=== PATIENT | male | born 1945 ===

== ENCOUNTER 2023-04-10 14:16 | Outpatient (AMB) | payer MEDICARE, OTHER, SELFPAY ==
--- NOTE | 2023-04-10 14:19 | A.OFFVIS_ITS ---
Intake Vital Signs 04/10/23 14:38 Height 6 ft Weight 204 lb BMI 27.7 BP 102/62 Blood Pressure Location Lt brachial Position Sitting Respiration 15 Pulse 85 Pulse Source Pulse Oximeter Pulse Oximetry (%) 95 Oxygen Delivery Method Room Air Intake Visit Reasons: [employer]OR [employer]KER: Chronic Headaches/Cerebral Myeloid-confirmed Intake Note: Pt presents to office for new patient evaluation for symptoms he has s/p brain bleed back in 06/18/21. He states he and was resuscitated and received platelet transfusion during that hospital stay. He has had daily headaches since. He reports his headaches are frontal and radiate towards the left temporal region, a 3/10 on a pain scale, achy and constant. Nothing provides any relief. He has noticed he has also developed unsteady gait, double vision as well as some significant memory loss. He reports 2 hospital admissions since his bleed due to aphasia and lack of coordination. He states he had multiple CT scans which were WNL. Allergies contrast dye Allergy (Mild, Uncoded 04/10/23 14:30) Agitated Medication List - Last Reconciled 04/10/23 by Clair Howe MD atorvastatin 10 mg PO DAILY empagliflozin (Jardiance) 10 mg PO DAILY glipizide 5 mg PO DAILY lisinopril 2.5 mg PO DAILY metformin 500 mg PO DAILY metoprolol succinate ER 25 mg PO DAILY HPI HPI Comments History of Present Illness Details 78y/o male comes for evaluation of heada ches, Intracranial hemorrhage, cerebral amyloidosis ? comes for further management. In May 2021 he was admitted in the hospital in [place] . He woke up with nasal bleeding , in the hospital he was found to have thrombocytopenia, he says he was in coma for 2-3 weeks. He does not have recollection of any events. He was in rehab after that for 1 month with near full recovery .He sees Dr. Holguin for Thrombocytopenia. since his admission he has gait issues - feels vertginous. Since his admission he has been having chronic headaches.The headaches are in left parietal pressure, constant pain, 2-3/10 in intensity. He denies nausea, photophobia, phonophobia. He has on and off double vision and has visual aura ( bright spots in his left field)intermittently .He denies neck pain. He takes 2 tylenols to help him sleep. he denies memory issues. No snoring. REPLACED BY [facility] Medical History Hypothyroidism Hyperlipidemia Back pain HTN (hypertension) Thrombocytopenia Prostate cancer ICH (intracerebral hemorrhage) GERD (gastroesophageal reflux disease) Weakness Diplopia Diabetes CAD (coronary artery disease) Cerebral amyloid angiopathy Surgical History S/P aorta repair History of left hip replacement Heart valve replaced History of prostatectomy Previous back surgery Family History Mother No problems noted. Father No problems noted. Social History Household Members: Significant Other Housing: Condominium Review of Systems Const Reports headache(s) Eyes Reports blurry vision and Reports diplopia ENT Reports headache(s) Reports urinary frequency Musc Reports back pain Neuro Reports headache(s) Physical Exam Vital Signs: Last Vital Signs Pulse 85 04/10/23 14:38 Resp 15 04/10/23 14:38 BP 102/62 04/10/23 14:38 Pulse Ox 95 04/10/23 14:38 Oxygen Delivery Method Room Air 04/10/23 14:38 BMI result Body Mass Index 27.7 Const Orientation/consciousness: patient oriented x3 Neuro Other: gait- wide based , mild off balance Mild slowing left UE Mallamaptti grade 4 restricted range of motion - tenderness and tightness in left levator and splenius - spasmodic torticollis General: patient oriented x3, tone normal, moves all extremities and no focal motor deficits Cranial nerves: Yes Facial sensation intact/muscles of mastication intact, Yes Bilaterally intact EOM present, Yes Nystagmus not present, Yes Normal facial strength present and Yes Midline tongue present Cognition (Neuro): normal cognition Motor exam (neuro): 5/5 motor strength present throughout and Normal motor muscle tone present throughout Deep tendon reflexes (DTR's): Right triceps reflex intensity grade: 0, Left triceps reflex intensity grade: 0, Rt Biceps (C5, C6): 0, Left biceps reflex intensity grade: 0, Right brachioradialis reflex intensity grade: 0, Left brachioradialis reflex intensity grade: 0, Right patellar reflex intensity grade: 0 and Left patellar reflex intensity grade: 0 Assessment & Plan Assessment & Plan (1) Spasmodic torticollis: Comment: left laterocollis Code(s): G24.3 - Spasmodic torticollis (2) Cervicogenic headache: Code(s): G44.86 - Cervicogenic headache Plan: arley related to dystonia Plan Discussed about diagnosis and suggested BOTOX. He will read info and will call us back PT- for gait and neck Orders: Orders PT Evaluation and Treatment Today G24.3 - Spasmodic torticollis, G44.86 - Cervicogenic headache, R26.9 - Unspecified abnormalities of gait and mobility Coding Level of Care Code New Pt Level 4 (16829) Diagnoses Spasmodic torticollis G24.3 Cervicogenic headache G44.86
[2023-04-10 14:38] VITALS: BP 102/62; PULSE 85; RESP 15; O2SAT 95; BMI 27.7
== END 2023-04-10 15:15 | disposition home or self-care (01) ==
PROVIDERS: PCP Student in an Organized Health Care Education/Training Program; Visit Provider Psychiatry & Neurology Neurology
DX: G24.3 Spasmodic torticollis (principal); G44.86 Cervicogenic headache
CPT/HCPCS: 99204

== ENCOUNTER → 2023-04-10 14:16 | Outpatient (BNVA) | payer OTHER, SELFPAY | PROVIDERS: PCP Student in an Organized Health Care Education/Training Program; Visit Provider Psychiatry & Neurology Neurology ==

== ENCOUNTER 2023-05-20 07:20 | Outpatient (AMB) | payer MEDICARE, OTHER, SELFPAY ==
--- NOTE | 2023-05-20 07:33 | A.OFFVIS_ITS ---
Intake Vital Signs 05/20/23 07:36 Weight 195 lb 4 oz BP 122/80 Blood Pressure Location Rt brachial Position Sitting Pulse 62 Pulse Source Pulse Oximeter Pulse Oximetry (%) 100 Oxygen Delivery Method Room Air Intake Visit Reasons: Botox B&B - Confirmed Intake Note: Botox Injection Road Conductor Required: No Allergies contrast dye Allergy (Mild, Uncoded 05/20/23 07:33) Agitated Medication List - Last Reconciled 05/20/23 by Clair Howe MD atorvastatin 10 mg PO DAILY blood sugar diagnostic (FreeStyle Lite Strips) As directed empagliflozin (Jardiance) 10 mg PO DAILY glipizide 5 mg PO DAILY lancets (FreeStyle Lancets) As directed levothyroxine 50 mcg PO DAILY lisinopril 2.5 mg PO DAILY metformin 500 mg PO DAILY metoprolol succinate ER 25 mg PO DAILY HPI HPI Comments History of Present Illness Details 78y/o male comes for treatment of his cervical dystonia ? Side effects including spread of toxin effect, dysphagia, breathing difficulties , bronchitis etc was discussed in detail and the patient agreed to the procedure.An informed consent was obtained ??? Botulinum toxin type A 100units X 1 -was diluted with 2 cc of normal saline at a concentration of 25 units in 0.5cc saline. Lot number [id number] expiration 08/2025 ??? Muscles injected ??? left Splenius - 25 units each ??? left levator 50 units each ? Total used 75 units Discarded 25 units PFSH Medical History Hypothyroidism Hyperlipidemia Back pain HTN (hypertension) Thrombocytopenia Prostate cancer ICH (intracerebral hemorrhage) GERD (gastroesophageal reflux disease) Weakness Diplopia Diabetes CAD (coronary artery disease) Cerebral amyloid angiopathy Surgical History S/P aorta repair History of left hip replacement Heart valve replaced History of prostatectomy Previous back surgery Family History Mother No problems noted. Father No problems noted. Household Members: Significant Other [facility] Alcohol intake: current Alcohol intake frequency: holidays/special occasions only Patient Tobacco Use Status: Never used Tobacco Physical Exam Vital Signs: Last Vital Signs Pulse 62 05/20/23 07:36 BP 122/80 05/20/23 07:36 Pulse Ox 100 05/20/23 07:36 Oxygen Delivery Method Room Air 05/20/23 07:36 Const Orientation/consciousness: patient oriented x3 Neuro Other: gait- wide based , mild off balance Mild slowing left UE Mallamaptti grade 4 restricted range of motion - tenderness and tightness in left levator and splenius - spasmodic torticollis General: patient oriented x3, tone normal, moves all extremities and no focal motor deficits Cranial nerves: Yes Facial sensation intact/muscles of mastication intact, Yes Bilaterally intact EOM present, Yes Nystagmus not present, Yes Normal facial strength present and Yes Midline tongue present Cognition (Neuro): normal cognition Motor exam (neuro): 5/5 motor strength present throughout and Normal motor muscle tone present throughout Office Procedures Botulinum toxin Injection 62014 - Dystonia Procedure code (CPT) selection complete Office Meds onabotulinumtoxinA 100 unit solution for injection Performing Provider: Clair Howe MD Performing Location: [facility] Administered by: Clair Howe MD on 05/20/23 10:43 Dose Route Admin Location Dispensed Lot Number Expiration Date [facility] Ocular Care Aide 75 unit IM 100 units [id number] 08/28/25 5096-5024-42 [employer] Comments: see HPI Assessment & Plan Assessment & Plan (1) Spasmodic torticollis: Comment: left laterocollis Code(s): G24.3 - Spasmodic torticollis (2) Cervicogenic headache: Code(s): G44.86 - Cervicogenic headache Plan: likley related to dystonia Plan Patient tolerated the procedure well He will call with any side effects Orders: Orders AMB Botulinum toxin Injection Today G24.3 - Spasmodic torticollis Coding Level of Care Code Est Pt Level 1 (79488) Diagnoses Spasmodic torticollis G24.3 Cervicogenic headache G44.86 CPT Codes Botox Injection - Botox 4: 27641 - Dystonia ([id number])
[2023-05-20 07:36] VITALS: BP 122/80; PULSE 62; O2SAT 100
== END 2023-05-20 08:06 | disposition home or self-care (01) ==
PROVIDERS: PCP Student in an Organized Health Care Education/Training Program; Visit Provider Psychiatry & Neurology Neurology
DX: G24.3 Spasmodic torticollis (principal)
CPT/HCPCS: 64616

== ENCOUNTER → 2023-05-20 07:20 | Outpatient (BNVA) | payer MEDICARE, OTHER, SELFPAY | PROVIDERS: PCP Student in an Organized Health Care Education/Training Program; Visit Provider Psychiatry & Neurology Neurology | DX: G44.86 Cervicogenic headache (principal); G24.3 Spasmodic torticollis | CPT/HCPCS: 64616; 99211; J0585 ==